=== PATIENT | male | born 1995 | race Caucasian/White ===

== ENCOUNTER 2016-08-30 12:26 | Emergency (ER) | payer OTHER ==
[~2016-08-30] VITALS: Ht 175.3 cm; Wt 72.6 kg
[2016-08-30 12:45] VITALS: BP 133/59
--- NOTE | 2016-08-30 13:17 | PHYS DOC ---
Past Medical History Past Medical History: No Pertinent History Past Surgical History: No Surgical History Alcohol Use: None Drug Use: None Adult General Chief Complaint Chief Complaint: DENTAL PROBLEM HPI HPI 20-year-old male presenting to the emergency department after sustaining injury to his bottom lip and front top teeth while working. He reports opening an umbrella when the ratchet hit him in the mouth. He has a small abrasion avulsion to the bottom lip and has some gingival bleeding on the top teeth. Onset today. Location mouth. Duration intermittent. No alleviating factors present. He denies any other injuries. He did not lose consciousness. He denies neck pain. He denies focal neurologic deficits. He states he is having a hard time concentrating and endorses concussive like symptoms. Review of systems was negative for chest pain abdominal pain nausea vomiting fevers or chills. All other review of systems is negative unless otherwise noted in history of present illness. Pertinent physical exam findings showed that the patient had a small abrasion avulsion of the bottom lip. It is approximately half of a centimeter to 1 cm in total length. In the patient's oral gingival examination he has mild gingival bleeding above the top 2 front teeth but the teeth are stable and not mobile. ED course: 20-year-old male presenting to the emergency department after having trauma to the mouth while opening up an umbrella at work. I had a long risk- benefit discussion about attempting to close the patient's bottom lip with some small sutures. The patient and his mother would like the wound not to be repaired. I feel like this is reasonable given the size of the wound/abrasion/ avulsion injury. The patient demonstrates medical decision making capacity. Patient does not need a head CT. He does endorse concussion-like symptoms so I recommended general concussion management. Teeth are nonmobile and there is no evidence of fracture. Currently I do not have access to a [facility] or dental x- rays as clarified by the x-ray tech. The patient was then discharged home in stable condition to follow up with their primary care physician over the next 2- 3 days. They were to return if their symptoms worsened or if they were concerned for any reason. [id number] discharge instructions and return precautions were given. Patient and his mothers questions were answered to their satisfaction. Patient and his mother are comfortable plan. Review of Systems Review of Systems SEE ABOVE. Allergies Allergies Allergies Coded Allergies Type Severity Reaction Last Updated Verified No Known Drug Allergies 6/4/17 No Physical Exam Physical Exam Constitutional: Well developed, well nourished, no acute distress, non-toxic appearance. [] HENT: Normocephalic, atraumatic, bilateral external ears normal, nose normal. see above. Eyes: PERRLA, EOMI, conjunctiva normal, no discharge. Neck: Normal range of motion, no tenderness, supple, no stridor. [] Cardiovascular:Heart rate regular rhythm, no murmur [] Lungs & Thorax: Bilateral breath sounds clear to auscultation Abdomen: Bowel sounds normal, soft, no tenderness, no masses, no pulsatile masses. [] Skin: Warm, dry, no erythema, no rash. Back: No tenderness, no CVA tenderness. [] Extremities: No tenderness, no cyanosis, no clubbing, ROM intact, no edema. Neurologic: Alert and oriented X 3, normal motor function, normal sensory function, no focal deficits noted. [] Psychologic: Affect normal, judgement normal, mood normal. [] Current Patient Data Vital Signs Vital Signs Date Time Temp Pulse Resp B/P (MAP) Pulse Ox O2 Delivery O2 Flow Rate FiO2 08/30/16 12:45 98.5 62 18 98 Room Air 98.5 EKG EKG [] Radiology/Procedures Radiology/Procedures [] Course & Med Decision Making Course & Med Decision Making Pertinent Labs and Imaging studies reviewed. (See chart for details) [] Dragon Disclaimer Dragon Disclaimer This electronic medical record was generated, in whole or in part, using a voice recognition dictation system. Departure Departure Impression: Primary Impression: Facial injury Additional Impressions: Lip laceration Tooth injury Disposition: 01 HOME, SELF-CARE Condition: STABLE Patient Instructions: Mouth Injury, Generic, Mouth Laceration, [id number] Additional Instructions: Thank you for allowing us to participate in your care today. I recommend you see the dentist tomorrow morning for evaluation. If you do not have a primary care provider you can ask for a list of our primary care providers. Return to the emergency department you have any new or concerning findings. This should be evaluated by the primary care physician and any necessary consulting services for continued management within a few days after discharge. Return to emergency room if you have any new or concerning symptoms including but not limited to fever, chills, nausea, vomiting, intractable pain, any new rashes, chest pain, shortness of air, uncontrolled bleeding, difficulty breathing, and/or vision loss. Problem Qualifiers Primary Impression: Facial injury Encounter type: initial encounter Qualified Codes: S09.93XA - Unspecified injury of face, initial encounter SOFIE BABIN MD Aug 30, 2016 13:17
== END 2016-08-30 13:48 | disposition home or self-care (01) ==
LOC: ER 12:26
DX: S01.511A Laceration without foreign body of lip, initial encounter (principal); S09.93XA Unspecified injury of face, initial encounter; W22.8XXA Striking against or struck by other objects, initial encounter; Y93.89 Activity, other specified; Y92.69 Other specified industrial and construction area as the place of occurrence of the external cause; Y99.8 Other external cause status
CPT/HCPCS: 99281